=== PATIENT | female | born 1990 ===

== ENCOUNTER 2023-05-25 09:14 | Day surgery (SDC) | payer OTHER ==
[2023-05-22 10:10] LABS: HEMATOCRIT 38.4 % (36.0-45.00); HEMOGLOBIN 12.8 g/dL (12.0-15.00); MEAN CELL VOLUME 84.9 fL (80.00-100.00); MEAN CORPUSCULAR HEMOGLOBIN 28.2 pg (27.00-32.0); MEAN CORPUSCULAR HGB CONC 33.3 g/dl (32.0-36.0); PLATELET COUNT 334 K/uL (150-450); RED BLOOD COUNT 4.52 M/uL (4.00-6.00); RED CELL DISTRIBUTION WIDTH 14.5 % (11.5-14.5)
[2023-05-22 10:45] LABS: PH,URINE 6.5 (5.0-8.0); URINE APPEARANCE Clear; URINE BILIRRUBIN Negative (NEGATIVE); URINE BLOOD Large; URINE COLOR Yellow; URINE GLUCOSE Negative (NEGATIVE); URINE LEUKOCYTE Small; URINE NITRATE Negative; URINE PROTEIN Negative (NEGATIVE); URINE UROBILINOGEN 0.2 E.U./dl
[2023-05-22 10:49] LABS: ALBUMIN 3.6 gm/dL (3.4-5.0); BILIRUBIN TOTAL 0.35 mg/dL (0.3-1.2); CALCIUM 9.4 mg/dL (8.5-10.1); CREATININE SERUM 0.71 mg/dL (0.55-1.02); GFR 94.23; GLOBULINA 3.7 G/DL (2.4-3.5); POTASSIUM 4.42 mEq/L (3.5-5.1); TOTAL PROTEIN 7.3 gm/dL (6.4-8.2); TSH 1.27 uIU/mL (0.358-3.74)
[2023-05-22 10:49] LABS: URINE BACTERIA 195.2 uL (0.0-1933); URINE EPITHELIAL CELLS 15.2 uL (0.0-38.8); URINE RBC 721.6 uL (0.0-20.8); URINE WBC 10.1 uL (0.0-23.2)
[2023-05-22 11:38] LABS: INR < 0.93; PROTHROMBIN TIME 9.7 SECONDS (9.0-11.5)
[2023-05-22 11:39] LABS: PARTIAL THROMBOPLASTIN TIME 28.2 SECONDS (22.0-34.0)
[~2023-05-25] VITALS: Ht 157.5 cm; Wt 93.0 kg
[2023-05-25] MEDS ORDERED: POVIDONE-IODINE 118 ML BOTT TOP ONE ×3 (10:37→13:30)
== END 2023-05-25 16:45 | disposition home or self-care (01) ==
LOC: CIR.AMB 09:14
PROVIDERS: ATTEND Student in an Organized Health Care Education/Training Program
DX: N93.8 Other specified abnormal uterine and vaginal bleeding (principal); N84.0 Polyp of corpus uteri